=== PATIENT | female | born 1990 | race African-American/Black ===

== ENCOUNTER 2018-12-07 06:24 | Day surgery (SDC) | payer OTHER, MEDICAID ==
[2018-12-07] MEDS ORDERED: fentaNYL CITRATE/PF 100 MCG/2 ML INJ. ONE ×3 (08:48→09:46)
[2018-12-07] MEDS ORDERED: NORMAL SALINE 1,000 ML IV.SOLN IV ONE (08:48)
[2018-12-07] MEDS ORDERED: ONDANSETRON HCL/PF 4 MG/ 2ML VIAL ONE (08:48)
[2018-12-07] MEDS ORDERED: LIDOCAINE HCL 2% PF 100MG/5ML VIAL IJ ONE (08:48)
[2018-12-07] MEDS ORDERED: LACTATED RINGERS 1,000 ML IV.SOLN IV ONE (08:48)
[2018-12-07] MEDS ORDERED: LIDOCAINE HCL 1% PF 300MG/30ML VIAL ONE (08:48)
[2018-12-07] MEDS ORDERED: MIDAZOLAM HCL 2 MG/2 ML VIAL ONE (08:48)
[2018-12-07] MEDS ORDERED: SUGAMMADEX SODIUM 200 MG/2 ML VIAL IV ONE (08:48)
[2018-12-07] MEDS ORDERED: BUPIV. HCL 0.25% (2.5MG/ML)/EPI. (1:200,000) PF 30 ML VIAL IJ ONE (08:48)
[2018-12-07] MEDS ORDERED: ENOXAPARIN SODIUM 40 MG/0.4 ML DISP.SYRIN SQ ONE (08:48)
[2018-12-07] MEDS ORDERED: ceFAZolin SODIUM 1 GM VIAL ONE (08:48)
[2018-12-07] MEDS ORDERED: DEXAMETHASONE SODIUM PHOSPHATE 10 MG/ML VIAL ONE (08:48)
[2018-12-07] MEDS ORDERED: PROPOFOL 200 MG/20 ML VIAL IV ONE (08:48)
[2018-12-07] MEDS ORDERED: SEVOFLURANE 250 ML LIQUID IH ONE (08:48)
[2018-12-07] MEDS ORDERED: ROCURONIUM BROMIDE 10 MG/ML 5ML VIAL ONE (08:48)
[2018-12-07] MEDS ORDERED: FAMOTIDINE 20 MG/2 ML VIAL ONE (08:48)
[2018-12-07] MEDS ORDERED: HYDROcodone /APAP 5/325 1 EACH TABLET ONE (11:11)
--- NOTE | 2018-12-07 14:34 | Operative Note ---
PREOPERATIVE DIAGNOSIS: Failed lap band. POSTOPERATIVE DIAGNOSIS: Failed lap band. PROCEDURES PERFORMED: Laparoscopic lap band removal and port removal. SURGEON: Srikanth Rocha M.D. INDICATIONS FOR PROCEDURE: Ms. Kaylan Arreguin is a 28-year-old female who presented with features of frequent episodes of nausea and vomiting that she has been having for the last many months. The patient has a history of lap band placement. The patient wishes to have the lap band removed. DESCRIPTION OF PROCEDURE: After explaining to the patient in detail and informed consent was obtained, the patient was identified in the preoperative holding area. The patient was transferred to the operating room and was placed in supine position. Sequential compressive devices were placed for DVT prophylaxis. Preoperative antibiotics were given. After induction of anesthesia, the abdomen was prepped and draped in a sterile fashion. Through a left upper quadrant 1 cm incision, and using Optiview technique, the peritoneal cavity was entered and pneumoperitoneum was created. Thereafter, under direct vision, a 5 mm trocar was placed in the left midabdomen and a 5 mm trocar was placed in the right midabdomen. A 15 mm trocar was placed in the epigastrium through the previous incision site. The lap band was identified. The capsule around the lap band was gently dissected off. The lap band was unbuckled and the tubing was divided distal to the hub. The tubing of the lap band was then removed. A capsulectomy and dissection of the gastrogastric plication was done. Absolute hemostasis was ensured. I then identified the port through the epigastric incision. The port was then gently dissected off and was removed with the tubing intact. Thorough saline irrigation was given. The abdomen was deflated. The incisions were closed with 4-0 Monocryl. The 15 mm port site incision was closed with 0 Vicryl for the subcutaneous tissue and skin was closed with 4-0 Monocryl. Dermabond was applied. The patient was stable at the end of the procedure. The patient was awakened from anesthesia and was transferred to the recovery room in stable condition. ESTIMATED BLOOD LOSS: Minimal. CONDITION OF THE PATIENT: Stable. FLUIDS GIVEN: Per Anesthesia note. SPECIMEN(S) SENT: None. COMPLICATIONS: None. ANESTHESIA: General. Srikanth Rocha M.D. VIRI/francis LORENA
== END 2018-12-07 13:00 | disposition home or self-care (01) ==
LOC: OPSURG 06:24
PROVIDERS: ATTEND Surgery
DX: K95.09 Other complications of gastric band procedure (principal); R11.2 Nausea with vomiting, unspecified
CPT/HCPCS: J0690; J1650; J2001; J2250; J2405; J2704; J3010; 43774; A9270-GY; J7030; J7120

== ENCOUNTER 2019-08-16 10:09 | Day surgery (SDC) | payer MEDICAID, OTHER ==
[~2019-08-16 10:09] MED LIST: BUPIV. HCL 0.25% (2.5MG/ML)/EPI. (1:200,000) PF 10 ML VIAL IM ONE; DEXAMETHASONE SODIUM PHOSPHATE 10 MG/ML VIAL ONE; FAMOTIDINE 20 MG/2 ML VIAL IV ONE; LIDOCAINE HCL 1% PF 300MG/30ML VIAL ONE; MIDAZOLAM HCL 2 MG/2 ML VIAL ONE; ONDANSETRON HCL/PF 4 MG/ 2ML VIAL ONE; SCOPOLAMINE HYDROBROMIDE 1.5MG/72HR PATCH TD ONE; SODIUM CHLORIDE IRRIG SOLUTION 3,000 ML IRRIG.SOLN IR ONE; ceFAZolin SODIUM 1 GM VIAL ONE
[2019-08-16] MEDS ORDERED: HYDROmorphone HCL/PF 1 MG/ML VIAL ONE (13:16)
[2019-08-16] MEDS ORDERED: LABETALOL HCL 20 MG/4 ML SYRINGE IV ONE (13:27)
[2019-08-16] MEDS ORDERED: fentaNYL CITRATE/PF 100 MCG/2 ML INJ. ONE (13:40)
--- NOTE | 2019-08-21 15:29 | Operative Note ---
PROCEDURE DATE: 08/16/2019 PREOPERATIVE DIAGNOSIS: 1. Morbid obesity. 2. Hypertension. POSTOPERATIVE DIAGNOSIS: 1. Morbid obesity. 2. Hypertension. PROCEDURES PERFORMED: 1. Laparoscopic vertical sleeve gastrectomy. 2. Upper gastrointestinal endoscopy. SURGEON: Srikanth Rocha M.D. INDICATIONS FOR PROCEDURE: Ms. Arreguin is a 28-year-old female who presented with features of morbid obesity. She was noted to have a weight of 350 pounds with a BMI of 54.9 with the above-listed comorbidities. She has a history of lap band placement and subsequent removal that was done earlier this year. The patient was advised laparoscopic vertical sleeve gastrectomy and possible hiatal hernia repair. The patient showed understanding and agreed to proceed. DESCRIPTION OF PROCEDURE: After explaining to the patient in detail and informed consent was obtained, the patient was identified in the preoperative holding area. The patient was transferred to the operating room and was placed in supine position. Sequential compressive devices were placed for DVT prophylaxis. Preoperative antibiotics were given. After induction of anesthesia, the abdomen was prepped and draped in a sterile fashion. Through a left upper quadrant 1-cm incision, and using Optiview technique, the peritoneal cavity was entered and pneumoperitoneum was created. Thereafter, under direct vision, another 5-mm trocar was placed in the left midabdomen and another 15-mm trocar was placed in the right midabdomen. Through a 1-cm incision in the right subcostal region, another 5-mm trocar was placed. Through a 1-cm incision in the epigastrium, a Gui retractor was introduced and the left lobe of the liver was retracted. On initial inspection, the patient was noted to have no evidence of hiatal hernia. I took down the gastroepiploic vessels using a LigaSure. This was continued superiorly. The short gastric vessels were taken down. The gastrophrenic ligament was divided and the Angle of His was mobilized. The posterior attachments of the stomach on the pancreas were released. Distally, the gastroepiploic vessels were taken down up to about 4 cm proximal to the pylorus. At this point, a #38 [place] Hurst Bougie was introduced into the stomach and was placed along the lesser curve. The stomach was then divided in a vertical fashion with multiple Endo JUWAN [employer] Black Load Staplers. The first firing was directed outwards towards the greater curvature. Subsequent firings were directed towards the Angle of His to create a loose sleeve around the #38 [place] bougie. The bougie was then removed and an upper GI endoscopy was performed at this point. The scope was introduced into the esophagus and was gradually advanced into the stomach. The GE junction appeared normal. The sleeve size appeared normal. No evidence of any active bleeding was noted. The stomach was insufflated with air and irrigation of fluid along the staple line revealed no evidence of air leak. The stomach was then suctioned out and the scope was removed. Absolute hemostasis was ensured. Thorough saline irrigation was given. The Gui retractor was removed. Approximately 10 mL of a lidocaine- Marcaine mix was instilled under the left hemidiaphragm. The sleeve gastrectomy specimen was removed. The abdomen was then deflated. The incisions were closed with 4-0 Monocryl. Dermabond was applied. Approximately 10 mL of a lidocaine- Marcaine mix was injected into all the incisions. The patient was awakened from anesthesia and was transferred to the recovery room in stable condition. ESTIMATED BLOOD LOSS: Approximately 75 mL. CONDITION OF THE PATIENT: Stable. FLUIDS GIVEN: Per Anesthesia note. SPECIMEN(S) SENT: Sleeve gastrectomy specimen. COMPLICATIONS: None. ANESTHESIA: General. Srikanth Rocha M.D. VIRI/francis (Please copy [facility] provider when applicable) Job #[id number] L[facility]
== END 2019-08-16 14:14 | disposition other institution (70) ==
LOC: OPSURG 10:09
PROVIDERS: ATTEND Surgery
DX: E66.01 Morbid (severe) obesity due to excess calories (principal); Z68.43 Body mass index [BMI] 50.0-59.9, adult; I10 Essential (primary) hypertension
CPT/HCPCS: 43235; 43775; 88305; A9270; J0690; J1170; J2001; J2250; J2405; J3010

== ENCOUNTER 2019-08-16 14:15 | Inpatient (IN) | payer MEDICAID, OTHER ==
[2019-08-16] MEDS ORDERED: IPRATROPIUM/ALBUTEROL SULFATE 3 ML AMPUL.NEB NEB PRN (14:31)
[2019-08-16] MEDS ORDERED: ACETAMINOPHEN 1,000 MG/100 ML INJ IV PRN (14:31)
[2019-08-16] MEDS ORDERED: 0.9 % SODIUM CHLORIDE 50 ML IV ONE (14:39)
[2019-08-16] MEDS ORDERED: PROMETHAZINE HCL 25 MG/ML VIAL ONE (14:39)
[2019-08-16 14:40] VITALS: BMI 54.1
--- NOTE | 2019-08-16 14:41 | History and Physical Report ---
History of Present Illnes - History of Present Illness Reason for Visit: S/P LAPAROSCOPIC VERTICAL SLEEVE GASTRECTOMY WITH ADHESIONS UPPER STOMACH History of Present Illness: Patient is a 28-year-old female who has tried multiple diets and exercise programs with no success. She has always struggled with her weight ever since getting . She had the Lap Band and had it removed 12/07/18 due to nausea, vomiting, and reflux. Patient and surgeon decided to proceed with gastric sleeve procedure. Procedure went well-Patient has been on a liquid diet prior to surgery so she is a risk of dehydration s/p surgery. She will be admitted for IV hydration to help hydrate patient until he is able to tolerate a sufficient oral intake, will treat pain with IV medication until patient is able to tolerate oral meds, IV antiemetics to help reduce episodes of nausea and/or vomiting. Patient will be monitored closely using telemetry s/p surgery d/t HTN. Will encourage incentive spirometer for morbid obesity. Patient appears very uncomfortable s/p surgery. - Past Medical History Cardiac: HTN Pulmonary: Asthma Gastrointestinal: GERD Psych: Depression Musculoskeletal: Chronic low back pain Endocrine: obesity Grav: 3 Para: 1 Ab: 2 - Past Surgical History Past Surgical History: Other (Lap Band on 10/23/15 and removed on 12/07/18) - Past Family History Mother Family History: CAD - Past Social History Smoke: No Alcohol: Rare Drugs: Marijuana Lives: With Family Domestic Violence: Negative - Health Maintenance Health Maintenance: Cholesterol, Pap Smear Influenza Vaccine: No Pneumonia Vaccine: No Resuscitation Status: Resusciation Status Resuscitation Status Full Code Review of Systems - Review of Systems Constitutional: Weakness Eyes: negative: conjunctivae inflammation, eyelid inflammation ENT: negative: Throat Pain Respiratory: SOB with Excertion Cardiovascular: negative: Chest Pain, Edema Gastrointestinal: Nausea, Vomiting, Abdominal Pain Genitourinary: negative: Dysuria Musculoskeletal: Back Pain Skin: Other (surgical incisions) Neurological: Weakness - Medications/Allergies Allergies/Adverse Reactions: Allergies Allergy/AdvReac Type Severity Reaction Status Date / Time No Known Allergies Allergy Unverified 08/16/19 14:24 Home Medications: Home Medications Acetaminophen [Tylenol] 650 mg PO PRN PRN 08/16/19 Albuterol Sulfate [Albuterol Sulfate Hfa] 2 puff IH PRN PRN 08/16/19 Levonorgestrel-Eth Estra [Nordette-8] 1 each PO DAILY 08/16/19 Current Inpatient Medications: Current Inpatient Medications Acetaminophen (Ofirmev) 1,000 mg IV Q6H PRN PRN Reason: For Mild Breakthrough Pain Stop: 08/20/19 14:30 Hydrocodone Bitart/Acetaminophen (Hycet 7.5-325mg/15 Ml Ud Cup) 15 ml PO Q4 PRN PRN Reason: Pain 5-7 Stop: 08/20/19 14:30 Albuterol/Ipratropium (Duoneb) 3 ml NEB Q4 PRN PRN Reason: Wheezing Stop: 09/15/19 14:30 Enoxaparin Sodium (Lovenox) 40 mg SQ DAILY [facility] Stop: 08/31/19 14:32 Famotidine (Pepcid) 20 mg IVP BID [facility] Stop: 08/20/19 20:59 Promethazine HCl 25 mg/ Sodium (Chloride) 51 mls @ 200 mls/hr IV Q6 PRN PRN Reason: Nausea / Vomiting Stop: 08/20/19 14:30 Sodium Chloride (Normal Saline) 1,000 mls @ 150 mls/hr IV Q8H [facility] Stop: 09/15/19 14:44 Cefazolin Sodium 1 gm/ Sodium (Chloride) 50 mls @ 100 mls/hr IV Q8H [facility] Stop: 08/17/19 04:29 Morphine Sulfate () 2 mg IV Q2H PRN PRN Reason: PAIN 8-10 Stop: 08/17/19 14:30 Ondansetron HCl (Zofran) 4 mg IVP Q6H PRN PRN Reason: Nausea / Vomiting Stop: 08/20/19 14:30 Exam - Exam Vital Signs: Vital Signs (72 hours) 08/16/19 14:35 Temperature 96.6 F L Pulse Rate [ 90 Right] Blood Pressure 133/93 [Right Arm] O2 Sat by Pulse 98 Oximetry General: Alert, Oriented to Person, Oriented to Place, Cooperative, Moderate distress (still very drowsy from anesthesia), Morbidly Obese HEENT: PERRLA, Mouth Mucous membr. moist/[place], Nose Mucous membr. moist/[place] Neck: Normal Range of Motion Carotids: No bruit Lungs: Clear to auscultation, Normal air movement Cardiovascular: Regular rate, Normal S1, Normal S2 Peripheral Edema: None Peripheral Pulses: 2+ Abdomen: Soft, Decreased Bowel Sounds Integumentary: Warm, Dry, Pale, Other (incisions x 5 without redness/erythema/drainage- skin adhesive intact) Extremities: Normal pulses, No tenderness/swelling Neurological: Strength Equal Bilat, Generalized Weakness Psych/Mental Status: Mental status NL Assessment/Plan - Assessment/Plan (1) Status post laparoscopic sleeve gastrectomy Status: Acute Current Visit: Yes Plan: Plan to admit for IV hydration, IV pain meds, and IV antiemetics. Lovenox and SCDs to help prevent DVTs, IS and frequent ambulation will be implemented. Start ice chips and advance diet as tolerated. IV pepcid BID (2) Morbid obesity due to excess calories Status: Acute Current Visit: Yes Plan: Patient is s/p gastric sleeve. We will assist patient with implementing gastric sleeve diet protocol starting with ice chips and clear liquids and advancing as tolerated (3) Nausea and vomiting Status: Acute Current Visit: Yes Plan: Pepcid IV BID ordered; IV antiemetics, and IVF (4) Hypertension Status: Acute Current Visit: Yes Qualifiers: Hypertension type: essential hypertension Qualified Code(s): I10 - Essential (primary) hypertension Plan: Will monitor blood pressure every 4 hours and prn (5) GERD (gastroesophageal reflux disease) Status: Acute Current Visit: Yes Plan: Will treat with Pepcid IV BID (6) Asthma Status: Acute Current Visit: Yes Plan: Will implement Duonebs prn VTE Assessment - RISK FACTOR SCORE VTE RISK FACTOR SCORES: OBESITY, MAJOR SURGERY/ANESTHESIA TIME > 1 HOUR - RISK VTE MODERATE RISK: SCORE OF 2 (RISK PROXIMAL DVT 2-4%) PROPHYAXIS NEEDED (Lovenox daily, frequent ambulation, incentive spirometer, SCDs while in bed)
[2019-08-16] MEDS: 0.9 % SODIUM CHLORIDE 1,000 ML IV SCH ×2 (14:50→21:50)
[2019-08-16] MEDS: MORPHINE SULFATE 2 MG/ML VIAL IV PRN ×2 (14:53→20:37)
[2019-08-16] MEDS: PROMETHAZINE HCL 25 MG in 0.9 % SODIUM CHLORIDE 50 ML IV PRN (14:57)
[2019-08-16] MEDS: ONDANSETRON HCL/PF 4 MG/ 2ML VIAL IVP PRN (20:38)
[2019-08-16] MEDS: FAMOTIDINE 20 MG/2 ML VIAL IVP SCH (20:41)
[2019-08-16] MEDS: ceFAZolin SODIUM 1 GM in 0.9 % SODIUM CHLORIDE 50 ML IV SCH (20:45)
[2019-08-17] MEDS: ONDANSETRON HCL/PF 4 MG/ 2ML VIAL IVP PRN ×2 (04:30→19:50)
[2019-08-17] MEDS: MORPHINE SULFATE 2 MG/ML VIAL IV PRN (04:40)
[2019-08-17] MEDS: ceFAZolin SODIUM 1 GM in 0.9 % SODIUM CHLORIDE 50 ML IV SCH (04:50)
[2019-08-17] MEDS: 0.9 % SODIUM CHLORIDE 1,000 ML IV SCH ×3 (05:31→17:09)
--- NOTE | 2019-08-17 06:48 | Inpatient Progress Note ---
Subjective - Required Recertification Statement I anticipate X number of days because-include discharge plan: 1 - Review of Systems Events since last encounter: Patient is lying in bed this morning awake. She states that she did not get much sleep. She was having a lot of discomfort last night. She states that pain is improving. She has had some nausea and moderate discomfort from the gas. She denies any chest pain or shortness of breath. She has been up ambulating in the halls and using incentive spirometer while awake. She is compliant with care. VSS and labs are WNL. General: Fatigue HEENT: Denies: Dysphasia Pulmonary: Denies: Dyspnea Cardiovascular: Denies: Chest Pain, Edema Gastrointestinal: Nausea, Abdominal Pain. Denies: Vomiting Genitourinary: Denies: Dysuria Musculoskeletal: Back Pain Neurological: Weakness Objective - Exam Vitals and I&O: Vital Signs Temp 98.9 F 08/17/19 06:00 Pulse 74 08/17/19 06:00 Resp 20 08/17/19 06:00 BP 142/82 08/17/19 06:00 Pulse Ox 95 08/17/19 06:00 Intake & Output 08/16/19 08/16/19 08/17/19 11:59 23:59 11:59 Intake Total 453 1200 Output Total 0 1000 Balance 453 200 Weight 156.762 kg Intake: IV 453 1200 Left hand 453 1200 Oral 0 Output: Urine 0 1000 Other: Voiding Method Toilet Toilet # Bowel Movements 0 0 General: Alert, Oriented to Person, Oriented to Place, Oriented to Time, Cooperative, Mild distress, Morbidly Obese HEENT: Atraumatic, Mouth Mucous membr. moist/[place], Nose Mucous membr. moist/[place] Neck: Supple, +2 carotid pulse wo bruit Lungs: Clear to auscultation, Normal air movement, Speaks full Sentences Cardiovascular: Regular rate, Normal S1, Normal S2 Abdomen: Soft, Decreased Bowel Sounds Extremities: Normal pulses, No tenderness/swelling Skin: [place], Warm, Dry, Other (incisions without redness/erythema/drainage; skin adhesive intact) Neurological: Normal gait, Normal speech, Strength Equal Bilat Psych/Mental Status: Mental status NL, Mood NL, Appropriate Affect Assessment/Plan - Assessment/Plan (1) Status post laparoscopic sleeve gastrectomy Status: Acute Current Visit: Yes Assessment: Patient experiencing nausea; has been ambulating, wearing SCDs while in bed, using incentive spirometry, patient receiving lovenox to prevent DVT Plan: Patient getting IV fluids for hydration, IV pain meds, and IV antiemetics. Lovenox and SCDs to help prevent DVTs, IS and frequent ambulation will be implemented. Patient eating ice chips and will advance diet to clear liquids as tolerated once nausea and vomiting is controlled. Will continue with Pepcid IV BID for GI upset (2) Morbid obesity due to excess calories Status: Acute Current Visit: Yes Assessment: Patient tolerating ice chips and water; some nausea Plan: Will advance diet to clear liquids today (3) Nausea and vomiting Status: Acute Current Visit: Yes Assessment: Patient having nausea; able to sip on fluids Plan: Will continue with Zofran and phenergan (4) Hypertension Status: Acute Current Visit: Yes Qualifiers: Hypertension type: essential hypertension Qualified Code(s): I10 - Essential (primary) hypertension Assessment: Blood pressures WNL this morning Plan: Will hold medication and continue to monitor (5) GERD (gastroesophageal reflux disease) Status: Acute Current Visit: Yes Assessment: Patient experiencing some nausea Plan: Will administer Pepcid IV BID 20mg (6) Asthma Status: Acute Current Visit: Yes Assessment: LCTA; no resp. issues Plan: Dora ordered Prn
[2019-08-17 07:02] LABS: eGFR (Non-African) > 60
[2019-08-17] MEDS ORDERED: SOUTH LOCK-UP KEY 1 EACH EACH MC ONE (07:13)
[2019-08-17 08:07] LABS: BASOPHILS % 1.1 % (0.0-1.5); HYPOCHROMASIA 1+ (NEGATIVE); NEUTROPHILS # 14.3 # k/uL (1.4-7.7); SEGMENTED NEUTROPHILS % 82 % (39-79)
[2019-08-17] MEDS: FAMOTIDINE 20 MG/2 ML VIAL IVP SCH ×2 (08:37→19:52)
[2019-08-17] MEDS: HYDROcodone-ACETAMIN 7.5-325/15ML SOLN UD CUP PO PRN (13:41)
[2019-08-17] MEDS: ENOXAPARIN SODIUM 40 MG/0.4 ML DISP.SYRIN SQ SCH (14:49)
[2019-08-17] MEDS ORDERED: LABETALOL HCL 20 MG/4 ML SYRINGE IV ONE (22:11)
[2019-08-18] MEDS: PROMETHAZINE HCL 25 MG in 0.9 % SODIUM CHLORIDE 50 ML IV PRN (01:03)
[2019-08-18] MEDS: HYDROcodone-ACETAMIN 7.5-325/15ML SOLN UD CUP PO PRN (01:13)
--- NOTE | 2019-08-18 07:20 | Discharge Summary ---
Discharge Summary - Discharge [facility] Admission Date: 08/16/19 Discharge Date: 08/18/19 Discharge To: Home History of Present Illness: Patient is a 28-year-old female who has tried multiple diets and exercise programs with no success. She has always struggled with her weight ever since getting . She had the Lap Band and had it removed 12/07/18 due to nausea, vomiting, and reflux. Patient and surgeon decided to proceed with gastric sleeve procedure. Procedure went well-Patient has been on a liquid diet prior to surgery so she is a risk of dehydration s/p surgery. She will be admitted for IV hydration to help hydrate patient until he is able to tolerate a sufficient oral intake, will treat pain with IV medication until patient is able to tolerate oral meds, IV antiemetics to help reduce episodes of nausea and/or vomiting. Patient will be monitored closely using telemetry s/p surgery d/t HTN. Will encourage incentive spirometer for morbid obesity. Patient appears very uncomfortable s/p surgery. Condition at Discharge: Stable Home Medications: Ambulatory Orders Medication Instructions Recorded Acetaminophen [Tylenol] 650 mg PO PRN PRN 08/16/19 Albuterol Sulfate [Albuterol 2 puff IH PRN PRN 08/16/19 Sulfate Hfa] Levonorgestrel-Eth Estra 1 each PO DAILY 08/16/19 [Nordginette-8] Consultations this Visit: None Procedures this Visit: Other (S/P LAPAROSCOPIC VERTICAL SLEEVE GASTRECTOMY WITH ADHESIONS UPPER STOMACH) Allergies/Adverse Reactions: Allergies Allergy/AdvReac Type Severity Reaction Status Date / Time No Known Allergies Allergy Unverified 08/16/19 14:24 Discharge Summary: Patient is a 28-year-old female that underwent the gastric sleeve procedure. She had some issues with nausea and dry heaves but has done well. She has been very cooperative with her care by ambulating frequently, using her incentive spirometer, and wearing her SCDs while in bed. She has been compliant with her diet during hospitalization. She is having minimal discomfort at this time and minimal nausea- she has is passing gas and belching. She is aware of discharge instructions and what she can and cannot do post surgical- she is aware of the strict diet she must follow to decrease discomfort and have success after procedure. She has family support and family will be taking her home- medications written by surgeon given to patient. She feels ready to go home. Hospital Course: Patient received IV pain medications, antiemetics, and IVF and was transitioned to oral. She has been up ambulating and using incentive spirometer. - Final Diagnosis (1) Status post laparoscopic sleeve gastrectomy Problems: Continue with bariatric sleeve diet- clear liquids today and start full liquids tomorrow; protein shake 80-100 grams protein Right or Left: Right (2) Morbid obesity due to excess calories Problems: Incision without redness or drainage, positive bowel sounds, minimal discomfort, belching and flatus, no extremity pain or edema, LCTA Right or Left: Right (3) Nausea and vomiting Problems: Script for antiemetic given (4) Hypertension Problems: Stable- continue on home meds Right or Left: Right (5) GERD (gastroesophageal reflux disease) Problems: Stable; continue on home meds Right or Left: Right (6) Asthma Problems: stable; continue on home meds Right or Left: Right
[2019-08-18] MEDS: ENOXAPARIN SODIUM 40 MG/0.4 ML DISP.SYRIN SQ SCH (08:29)
[2019-08-18] MEDS: FAMOTIDINE 20 MG/2 ML VIAL IVP SCH (08:33)
[2019-08-18] MEDS ORDERED: ACETAMINOPHEN 325 MG TABLET PO ONE (08:47)
[2019-08-18] MEDS ORDERED: ACETAMINOPHEN 325 MG TABLET ONE (08:51)
[2019-08-18 09:50] VITALS: BP 141/96
== END 2019-08-18 10:00 | disposition home or self-care (01) | DRG 621 ==
LOC: SOUTH 14:15
PROVIDERS: ADMIT Nurse Practitioner Family; ATTEND Nurse Practitioner Family
PROC: 0DB64Z3 Excision of Stomach, Percutaneous Endoscopic Approach, Vertical (ICD-10-PCS; principal; 2019-08-16)
DX: E66.01 Morbid (severe) obesity due to excess calories (principal); I10 Essential (primary) hypertension; K21.9 Gastro-esophageal reflux disease without esophagitis; F32.9 Major depressive disorder, single episode, unspecified; G89.29 Other chronic pain; M54.5 Low back pain; J45.909 Unspecified asthma, uncomplicated; Z68.43 Body mass index [BMI] 50.0-59.9, adult; Z79.899 Other long term (current) drug therapy
CPT/HCPCS: 36415; 80053; 85025; 97116; 97530; A9270; J0690; J1650; J2270; J2405; J2550; J7030; 99221; 99231; 99238